=== PATIENT | female | born 1940 | race Caucasian/White ===

== ENCOUNTER → 2016-07-04 | Outpatient (CLI) | payer MEDICARE, OTHER ==
[~2016-07-04] MED LIST: ASPIRIN 81M81 MG/TA2 PO; CALCIUM + D 6001 TA1 PO; CINNAMON500 MG PO; DIABETA 5MG5 MG/TAB PO; GARLIC OIL NA1000 MG PO; GLUCOPHAGE500 MG/TAB PO; LIPITOR 80MG80 MG PO; LOPRESSOR 550 MG/TAB PO; OMEGA-3 FISH1200 MG PO; PRINIVIL40 MG PO; ZOCOR 80MG80 MG PO; insulin SQ
== END ==
LOC: MC.RAD 08:11
DX: N63 Unspecified lump in breast (principal); D24.2 Benign neoplasm of left breast; D24.1 Benign neoplasm of right breast

== ENCOUNTER → 2018-08-24 | Outpatient (CLI) | payer MEDICARE, OTHER | LOC: MC.RAD 10:00 | DX: Z12.31 Encounter for screening mammogram for malignant neoplasm of breast (principal) ==

== ENCOUNTER → 2019-04-13 | Outpatient (CLI) | payer MEDICARE, OTHER | LOC: MC.RAD 12:21 | DX: N63.10 Unspecified lump in the right breast, unspecified quadrant (principal) | CPT/HCPCS: G0279 ==

== ENCOUNTER → 2020-08-17 | Outpatient (CLI) | payer MEDICARE, OTHER ==
[~2020-08-17] MED LIST changes: +FOSAMAX 35MG35 MG PO; +JANUVIA 100MG100 MG PO; +LANTUS100 U/ML SQ; +MASON NATURAL2000 IU PO; +MULTIVITAMIN FO1 CAP PO; +OMEGA-31 SGL PO; +PEPCID 20MG TAB20 MG PO; +ZOLOFT 100MG100 MG PO
== END ==
LOC: ZCOL.LAB 18:08
DX: T21.01XD Burn of unspecified degree of chest wall, subsequent encounter (principal)

== ENCOUNTER 2021-02-06 09:35 | Day surgery (SDC) | payer MEDICARE, OTHER ==
[~2021-02-06] VITALS: Ht 162.6 cm; Wt 90.4 kg
[~2021-02-06 09:35] MED LIST changes: -FOSAMAX 35MG35 MG PO; -JANUVIA 100MG100 MG PO; -LANTUS100 U/ML SQ; -MASON NATURAL2000 IU PO; -MULTIVITAMIN FO1 CAP PO; -OMEGA-31 SGL PO; -PEPCID 20MG TAB20 MG PO; -ZOLOFT 100MG100 MG PO
[2021-02-06] MEDS ORDERED: JANUVIA 100MG100 MG PO ×2 (10:43→10:51)
[2021-02-06] MEDS ORDERED: FOSAMAX 35MG35 MG PO (10:46)
[2021-02-06] MEDS ORDERED: LIPITOR 80MG80 MG PO (10:47)
[2021-02-06] MEDS ORDERED: MASON NATURAL2000 IU PO (10:47)
[2021-02-06] MEDS ORDERED: LANTUS100 U/ML SQ (10:49)
[2021-02-06] MEDS ORDERED: PRINIVIL40 MG PO (10:49)
[2021-02-06] MEDS ORDERED: GLUCOPHAGE500 MG/TAB PO (10:50)
--- NOTE | 2021-02-06 10:50 | NUR ---
PATIENT AMBULATED INTO ENDO UNIT WITH STEADY GAIT. PATIENT IS ALERT AND ORIENTED X3. PATIENT SON IS TO BE CALLED WHEN READY TO GO HOME. CONSENT EXPLAINED AND PATIENT SIGNED. ASSESSMENT COMPLETED. LUNGS CTA. HEART S1S2, REGULAR WITH MURMUR. BOWEL SOUNDS HEARD. PEDAL PULSES +2.
[2021-02-06] MEDS ORDERED: ZOLOFT 100MG100 MG PO (10:51)
[2021-02-06] MEDS ORDERED: MULTIVITAMIN FO1 CAP PO (10:52)
[2021-02-06] MEDS ORDERED: OMEGA-31 SGL PO (10:53)
[2021-02-06 10:59] VITALS: BP 140/75; PULSE 95; TEMP 98.4
[2021-02-06] MEDS ORDERED: PEPCID 20MG TAB20 MG PO (12:01)
[2021-02-06 12:05] VITALS: BP 127/66; PULSE 84; TEMP 97.8
--- NOTE | 2021-02-06 12:05 | NUR ---
PATIENT BROUGHT BACK TO [facility], AMBULATED WITHOUT DIFFICULTY. PATIENT IS AWAKE ALERT. NO COMPLAINTS OF [place] OR PAIN. VITAL SIGNS STABLE. REPORT RECIEVED FROM VANESSA JUNG, ALL QUESTIONS ANSWERED. REQUESTS MUFFIN AND JUICE. WARM BLANKET PROVIDED, WILL CONTINUE TO MONITOR.
[2021-02-06 12:20] VITALS: BP 123/62; PULSE 77
--- NOTE | 2021-02-06 12:20 | NUR ---
TOLERATING FOOD AND DRINK WITHOUT DIFFICULTY. PATIENT AWAITING TO SPEAK WITH DR. SAMSON. WILL CONTINUE TO MONITOR.
[2021-02-06 12:35] VITALS: BP 146/70; PULSE 82
--- NOTE | 2021-02-06 12:52 | NUR ---
VSS ON ROOM AIR. DR SAMSON SPEAKS WITH PATIENT. PATIENT DENIES DISCOMFORT AND NAUSEA. IV DC'D WITH CATHETER TIP INTACT. PRESSURE AND BANDAGE APPLIED. 2600 DISCHARGE INSTRUCTIONS GIVEN VERBAL AND DISCHARGE PACKET PROVIDED. QUESTIONS ANSWERED AND PATIENT VOICED UNDERSTANDING. PATIENT SON CALLED. PATIENT CHANGES INTO STREET CLOTHES. [id number] PATIENT'S SON LATE ON PICKING UP PATIENT PER PRIVATE VECHILE.
== END 2021-02-06 13:39 | disposition home or self-care (01) ==
LOC: SDCO 09:35
DX: D12.2 Benign neoplasm of ascending colon (principal); K63.5 Polyp of colon; D17.5 Benign lipomatous neoplasm of intra-abdominal organs; K25.7 Chronic gastric ulcer without hemorrhage or perforation; K29.30 Chronic superficial gastritis without bleeding; K29.80 Duodenitis without bleeding; K31.819 Angiodysplasia of stomach and duodenum without bleeding; K64.0 First degree hemorrhoids; K57.30 Diverticulosis of large intestine without perforation or abscess without bleeding; D50.0 Iron deficiency anemia secondary to blood loss (chronic); I10 Essential (primary) hypertension; M19.90 Unspecified osteoarthritis, unspecified site; E78.5 Hyperlipidemia, unspecified; E11.40 Type 2 diabetes mellitus with diabetic neuropathy, unspecified; F32.9 Major depressive disorder, single episode, unspecified; F41.9 Anxiety disorder, unspecified; Z79.82 Long term (current) use of aspirin; Z20.822 Contact with and (suspected) exposure to COVID-19; Z79.899 Other long term (current) drug therapy; Z87.891 Personal history of nicotine dependence; Z79.84 Long term (current) use of oral hypoglycemic drugs
CPT/HCPCS: J7030

== ENCOUNTER 2021-05-17 11:43 | Emergency (ER) | payer MEDICARE, OTHER ==
[~2021-05-17] VITALS: Ht 154.9 cm; Wt 75.0 kg
[~2021-05-17 11:43] MED LIST changes: +FOSAMAX 35MG35 MG PO; +JANUVIA 100MG100 MG PO; +LANTUS100 U/ML SQ; +MASON NATURAL2000 IU PO; +MULTIVITAMIN FO1 CAP PO; +OMEGA-31 SGL PO; +PEPCID 20MG TAB20 MG PO; +ZOLOFT 100MG100 MG PO
[2021-05-17 12:41] LABS: BASO # 0.1 K/mm3 (0.0-0.2); BASO % 0.6 % (0.0-2.0); EOS # 0.1 K/mm3 (0.0-0.7); EOS % 0.5 % (0.0-4.0); GRAN # 9.9 K/mm3 (1.4-6.5); GRAN % 79.6 % (42.2-75.2); LYMPH # 1.1 K/mm3 (1.2-3.4); LYMPH % 8.8 % (20.0-51.0); MEAN CELL VOLUME 81 fl (80.0-100.0); MEAN CORPUSCULAR HGB CONC 32 g/dl (33.0-37.0); MEAN PLATELET VOLUME 8.9 fl (7.4-10.4); MONO # 1.2 K/mm3 (0.1-0.6); MONO % 9.9 % (1.7-9.3); PLATELET COUNT 411 K/mm3 (130-400); RED BLOOD COUNT 3.82 M/mm3 (4.10-5.30); REDCELL DISTRIBUTION WIDTH-CV 15.8 % (11.5-14.5)
[2021-05-17 12:42] LABS: HEMATOCRIT 30.8 % (37.0-47.0); HEMOGLOBIN 9.7 g/dl (12.5-16.0); MEAN CORPUSCULAR HEMOGLOBIN 25 pg (27-31)
[2021-05-17 12:44] LABS: INR 1.1 (0.8-3.0); PROTHROMBIN TIME 12.2 SECONDS (9.7-12.8)
[2021-05-17 12:47] LABS: PARTIAL THROMBOPLASTIN TIME 33.4 SECONDS (26.0-37.0)
[2021-05-17 12:55] LABS: ALANINE AMINOTRANSFERASE 9 U/L (0-55); ALBUMIN 3.6 gm/dL (3.4-4.8); ALKALINE PHOSPHATASE 103 U/L (40-150); ANION GAP 13 mmol/L (7-16); AST,SGOT 17 U/L (5-34); BILIRUBIN,TOTAL 0.6 mg/dL (0.2-1.2); BLOOD UREA NITROGEN 8 mg/dL (10-20); CALCIUM 9.2 mg/dL (8.4-10.2); CARBON DIOXIDE 21 mmol/L (23-31); CHLORIDE 97 mmol/L (98-107); CREATININE, serum 0.79 mg/dL (0.57-1.11); GLUCOSE 154 mg/dL (70-99); POTASSIUM 4.6 mmol/L (3.5-4.5); SODIUM 131 mmol/L (136-145); TOTAL PROTEIN 7.9 gm/dL (6.2-8.1)
[2021-05-17 13:02] LABS: TROPONIN-I < 0.010 ng/mL (0.00-0.033)
[2021-05-17 15:08] VITALS: BP 138/73; PULSE 102; TEMP 98.5
== END 2021-05-17 15:08 | disposition home or self-care (01) ==
LOC: COL.ER 11:43
PROVIDERS: Emergency Medicine
DX: R06.00 Dyspnea, unspecified (principal); D64.9 Anemia, unspecified; E87.1 Hypo-osmolality and hyponatremia; D72.829 Elevated white blood cell count, unspecified; R79.1 Abnormal coagulation profile; E11.9 Type 2 diabetes mellitus without complications; I10 Essential (primary) hypertension; E78.5 Hyperlipidemia, unspecified; F17.210 Nicotine dependence, cigarettes, uncomplicated; Z20.822 Contact with and (suspected) exposure to COVID-19; Z79.4 Long term (current) use of insulin; Z79.84 Long term (current) use of oral hypoglycemic drugs; Z79.899 Other long term (current) drug therapy
CPT/HCPCS: J7040; Q9967

== ENCOUNTER 2021-10-09 13:02 | Emergency (ER) | payer MEDICARE, OTHER ==
[~2021-10-09] VITALS: Ht 154.9 cm; Wt 79.5 kg
[2021-10-09 13:13] VITALS: TEMP 98.1
[2021-10-09 14:07] LABS: BASO # 0.1 K/mm3 (0.0-0.2); BASO % 0.6 % (0.0-2.0); EOS % 0.3 % (0.0-4.0); GRAN # 8.7 K/mm3 (1.4-6.5); GRAN % 82.1 % (42.2-75.2); HEMOGLOBIN 10.1 g/dl (12.5-16.0); LYMPH # 0.9 K/mm3 (1.2-3.4); LYMPH % 8.2 % (20.0-51.0); MEAN CELL VOLUME 82 fl (80.0-100.0); MEAN CORPUSCULAR HEMOGLOBIN 25 pg (27-31); MEAN CORPUSCULAR HGB CONC 30 g/dl (33.0-37.0); MEAN PLATELET VOLUME 8.7 fl (7.4-10.4); MONO # 0.9 K/mm3 (0.1-0.6); MONO % 8.3 % (1.7-9.3); PLATELET COUNT 389 K/mm3 (130-400); RED BLOOD COUNT 4.06 M/mm3 (4.10-5.30); REDCELL DISTRIBUTION WIDTH-CV 17.3 % (11.5-14.5)
[2021-10-09 14:26] LABS: ALBUMIN 3.8 gm/dL (3.4-4.8); BILIRUBIN,TOTAL 0.6 mg/dL (0.2-1.2); CALCIUM 9.8 mg/dL (8.4-10.2); CREATININE, serum 0.75 mg/dL (0.57-1.11); POTASSIUM 4.2 mmol/L (3.5-4.5); TOTAL PROTEIN 7.6 gm/dL (6.2-8.1)
[2021-10-09 14:30] LABS: HEMATOCRIT 33.2 % (37.0-47.0)
[2021-10-09 14:32] LABS: TROPONIN-I 0.013 ng/mL (0.00-0.033)
[2021-10-09 15:35] LABS: PH 7 (5-8); SQUAMOUS EPITHELIAL None Seen /hpf (0-10); URINE APPEARANCE Clear (CLEAR/HAZY); URINE BACTERIA None Seen /hpf (NONE SEEN); URINE BILIRUBIN Negative (NEGATIVE); URINE BLOOD Negative (NEGATIVE); URINE COLOR Straw (YELLOW); URINE GLUCOSE Negative (NEGATIVE); URINE KETONE Negative (NEGATIVE); URINE LEUKOCYTE ESTERASE Negative (NEGATIVE); URINE NITRATE Negative (NEGATIVE); URINE PROTEIN(semi-quant) Negative (NEGATIVE); URINE RBC None Seen /hpf (0-2); URINE UROBILINOGEN Negative (NEGATIVE)
[2021-10-09 15:37] LABS: COLLECTION METHOD CATHETER
[2021-10-09 16:12] VITALS: BP 131/64; PULSE 88
== END 2021-10-09 16:12 | disposition home or self-care (01) ==
LOC: COL.ER 13:02
PROVIDERS: Nurse Practitioner Primary Care
DX: B02.9 Zoster without complications (principal); Z20.822 Contact with and (suspected) exposure to COVID-19

== ENCOUNTER 2022-08-06 20:04 | Inpatient (IN) | payer MEDICARE, OTHER ==
[~2022-08-06] VITALS: Ht 162.6 cm; Wt 77.0 kg
[~2022-08-06 20:04] MED LIST changes: +CORDARONE200 MG/TAB PO; +COREG 3.123.125 MG/T PO; +ELIQUIS 5MG PO; +JARDIANCE10 PO; +LASIX 40MG TABL40 MG PO; +TOPROL XL 25MG25 MG PO
[2022-08-06 20:52] LABS: BASO % 0.3 % (0.0-2.0); EOS # 0.1 K/mm3 (0.0-0.7); EOS % 0.7 % (0.0-4.0); GRAN # 11.7 K/mm3 (1.4-6.5); GRAN % 79.5 % (42.2-75.2); HEMATOCRIT 39.3 % (37.0-47.0); HEMOGLOBIN 13.1 g/dl (12.5-16.0); LYMPH # 1.7 K/mm3 (1.2-3.4); LYMPH % 11.5 % (20.0-51.0); MEAN CELL VOLUME 88 fl (80.0-100.0); MEAN CORPUSCULAR HEMOGLOBIN 29 pg (27-31); MEAN CORPUSCULAR HGB CONC 33 g/dl (33.0-37.0); MEAN PLATELET VOLUME 10.2 fl (7.4-10.4); MONO % 6.9 % (1.7-9.3); PLATELET COUNT 236 K/mm3 (130-400); RED BLOOD COUNT 4.47 M/mm3 (4.10-5.30); REDCELL DISTRIBUTION WIDTH-CV 13.4 % (11.5-14.5)
[2022-08-06 21:06] LABS: COLLECTION METHOD CLEAN CATCH
[2022-08-06 21:14] LABS: INR 2.3 (0.8-3.0); PROTHROMBIN TIME 27.1 SECONDS (9.7-12.8)
[2022-08-06 21:17] LABS: PARTIAL THROMBOPLASTIN TIME 42.3 SECONDS (26.0-37.0)
[2022-08-06 21:20] LABS: AMORPHOUS CRYSTAL Present (NOT PRESENT); MUCOUS Present (NOT PRESENT); SQUAMOUS EPITHELIAL None Seen /hpf (0-10); URINE BACTERIA Rare /hpf (NONE SEEN); URINE RBC 0-2 /hpf (0-2)
[2022-08-06 21:21] LABS: URINE APPEARANCE Hazy (CLEAR/HAZY); URINE BLOOD Negative (NEGATIVE); URINE COLOR Yellow (YELLOW); URINE GLUCOSE Negative (NEGATIVE); URINE KETONE Negative (NEGATIVE); URINE NITRATE Negative (NEGATIVE); URINE PROTEIN(semi-quant) Negative (NEGATIVE); URINE UROBILINOGEN 0.2 (NEGATIVE)
[2022-08-06 21:31] LABS: ALBUMIN 3.1 gm/dL (3.4-4.8); BILIRUBIN,TOTAL 0.5 mg/dL (0.2-1.2); CALCIUM 8.5 mg/dL (8.4-10.2); CREATININE, serum 4.12 mg/dL (0.57-1.11); POTASSIUM 4.1 mmol/L (3.5-4.5); TOTAL PROTEIN 5.8 gm/dL (6.2-8.1)
[2022-08-06 21:36] LABS: TROPONIN-I 0.027 ng/mL (0.00-0.033)
[2022-08-07 06:22] LABS: BASO % 0.3 % (0.0-2.0); EOS # 0.1 K/mm3 (0.0-0.7); EOS % 0.7 % (0.0-4.0); GRAN # 10.6 K/mm3 (1.4-6.5); GRAN % 79.7 % (42.2-75.2); LYMPH # 1.6 K/mm3 (1.2-3.4); LYMPH % 11.8 % (20.0-51.0); MEAN CELL VOLUME 89 fl (80.0-100.0); MEAN CORPUSCULAR HEMOGLOBIN 29 pg (27-31); MEAN CORPUSCULAR HGB CONC 33 g/dl (33.0-37.0); MEAN PLATELET VOLUME 9.5 fl (7.4-10.4); MONO # 0.9 K/mm3 (0.1-0.6); MONO % 6.7 % (1.7-9.3); PLATELET COUNT 194 K/mm3 (130-400); RED BLOOD COUNT 4.08 M/mm3 (4.10-5.30); REDCELL DISTRIBUTION WIDTH-CV 13.5 % (11.5-14.5)
[2022-08-07 06:26] LABS: HEMATOCRIT 36.2 % (37.0-47.0)
[2022-08-07 06:40] LABS: ALBUMIN 3.3 gm/dL (3.4-4.8); CALCIUM 8.7 mg/dL (8.4-10.2); CREATININE, serum 3.97 mg/dL (0.57-1.11); MAGNESIUM 2.2 mg/dL (1.6-2.6); PHOSPHOROUS 4.9 mg/dL (2.3-4.7); POTASSIUM 3.8 mmol/L (3.5-4.5)
[2022-08-07 12:44] VITALS: BP 114/51; PULSE 67; TEMP 97.6
--- NOTE | 2022-08-07 12:54 | NUR ---
PT ADMITTED FROM ED FOR SEPSIS, WEAKNESS, AND FALL. PT IS AXOX4 BUT SLEEPY. PT'S VSS. PT HAS LR RUNNING. PT ORIENTED TO ROOM AND FLOOR. CALL LIGHT GIVEN AND PT INSTRUCTED TO CALL WITH ALL NEEDS. BED ALARM ACTIVE.
[2022-08-07 16:00] VITALS: BP 127/48; PULSE 69; TEMP 97.7; TEMP 98
[2022-08-07 16:34] LABS: CALCIUM 8.7 mg/dL (8.4-10.2); CREATININE, serum 3.34 mg/dL (0.57-1.11); POTASSIUM 3.8 mmol/L (3.5-4.5)
[2022-08-07 19:17] VITALS: BP 111/33; PULSE 75; TEMP 98.6
[2022-08-07 23:53] VITALS: BP 116/52; PULSE 78; TEMP 98.6
[2022-08-08 03:49] VITALS: BP 135/54; PULSE 78; TEMP 98.6
--- NOTE | 2022-08-08 05:44 | NUR ---
pt weaned to RA, IVF infusing per piv @100cc/hr, bgm last noc was 99, no SSI required. no diarrhea this shift.
[2022-08-08 07:34] VITALS: BP 117/41; PULSE 70; TEMP 98.2
[2022-08-08 07:38] LABS: BASO # 0.1 K/mm3 (0.0-0.2); BASO % 0.4 % (0.0-2.0); EOS # 0.1 K/mm3 (0.0-0.7); EOS % 1.1 % (0.0-4.0); GRAN # 9.3 K/mm3 (1.4-6.5); GRAN % 77.9 % (42.2-75.2); HEMATOCRIT 35.5 % (37.0-47.0); HEMOGLOBIN 11.6 g/dl (12.5-16.0); LYMPH # 1.5 K/mm3 (1.2-3.4); LYMPH % 12.9 % (20.0-51.0); MEAN CELL VOLUME 90 fl (80.0-100.0); MEAN CORPUSCULAR HEMOGLOBIN 30 pg (27-31); MEAN CORPUSCULAR HGB CONC 33 g/dl (33.0-37.0); MEAN PLATELET VOLUME 9.6 fl (7.4-10.4); MONO # 0.9 K/mm3 (0.1-0.6); MONO % 7.2 % (1.7-9.3); PLATELET COUNT 173 K/mm3 (130-400); RED BLOOD COUNT 3.93 M/mm3 (4.10-5.30); REDCELL DISTRIBUTION WIDTH-CV 13.4 % (11.5-14.5)
[2022-08-08 07:41] LABS: CALCIUM 9.1 mg/dL (8.4-10.2); CREATININE, serum 2.07 mg/dL (0.57-1.11); POTASSIUM 3.9 mmol/L (3.5-4.5)
--- NOTE | 2022-08-08 10:44 | NUR ---
SW met w patient to complete intake. Patient reports that she lives at home with her son Marlo ([phone]). Patient reports that she is independent with her ADL's and utilizes a walker to assist with mobility. Patient endorses to eating and drinking normal at home and that her son makes meals for her. PCP is and she utilizes Mail in prescriptions for her medications. Patient verbalizes that she does have a [id number] established listing her son. Patient verbalizes that at this time she does not have home health services, but would like to be discharged home with home health at this discharge. SW confirmed that patients code status of DNR with hospitalist. Discharge plan: Home ( patient would like home health services established.)
--- NOTE | 2022-08-08 10:50 | NUR ---
SHIFT ASSESSMENT COMPLETED AND MORNING MEDICATIONS ADMINISTERED PER ORDER. PATIENT IS ALERT AND ORIENTED X4. DENIES PAIN. LUNGS CTA. ON IV FLUIDS, TOLERATING WELL. DENIES NEEDS. CALL LIGHT WITHIN REACH.
[2022-08-08 11:21] VITALS: BP 105/37; PULSE 76; TEMP 98.8
--- NOTE | 2022-08-08 13:42 | NUR ---
Press Set Up was contacted by nursing staff in reference to Patient's family's concerns for discharging home with home health rather than SNF. SW briefed family of the reccomendations from treatment team and the assessment of Patient's needs being met with Home Health Services rather than SNF. SW briefed family that medically necessity must be met to be admitted to SNF. Family requested nursing staff re-brief Patient on the aspects of DNR status and the care to be provided, and not provided due to the decision to transition to DNR. SW will consult nursing staff to request Patient be briefed from a medical perspective.
[2022-08-08 15:21] VITALS: BP 117/60; PULSE 67; TEMP 98
[2022-08-08 16:49] LABS: CALCIUM 9.3 mg/dL (8.4-10.2); CREATININE, serum 1.54 mg/dL (0.57-1.11); POTASSIUM 4.1 mmol/L (3.5-4.5)
[2022-08-08] MEDS ORDERED: CORDARONE200 MG/TAB PO (17:11)
--- NOTE | 2022-08-08 18:47 | NUR ---
PATIENT DISCHARGED PER ORDER. IV TO LEFT WRIST AND RIGHT FOREARM REMOVED WITH CATHETERS INTACT, SCANT BLEEDING NOTED TO IV SITES, PRESSURE APPLIED UNTIL HEMOSTASIS ACHIEVED, GAUZE DRESSING APPLIED. DISCHARGE TEACHING PROVIDED TO PATIENT AND SON WHO BOTH DENY QUESTIONS OR CONCERNS. DENIES FURTHER NEEDS.
== END 2022-08-08 19:00 | disposition home health service (06) | DRG 872 ==
LOC: COL.ER 20:04 → MEDICAL 08-07 05:14
PROVIDERS: Family Medicine; Internal Medicine; Student in an Organized Health Care Education/Training Program; ADMIT Internal Medicine
DX: A41.9 Sepsis, unspecified organism (principal); N17.9 Acute kidney failure, unspecified; E87.1 Hypo-osmolality and hyponatremia; I50.22 Chronic systolic (congestive) heart failure; Z66 Do not resuscitate; R19.7 Diarrhea, unspecified; R11.2 Nausea with vomiting, unspecified; I95.9 Hypotension, unspecified; I48.91 Unspecified atrial fibrillation; E11.9 Type 2 diabetes mellitus without complications; E78.5 Hyperlipidemia, unspecified; K21.9 Gastro-esophageal reflux disease without esophagitis; F32.A Depression, unspecified; M81.0 Age-related osteoporosis without current pathological fracture; D50.9 Iron deficiency anemia, unspecified; I11.0 Hypertensive heart disease with heart failure; Z79.4 Long term (current) use of insulin; Z79.84 Long term (current) use of oral hypoglycemic drugs; Z79.01 Long term (current) use of anticoagulants; Z79.82 Long term (current) use of aspirin; Z79.899 Other long term (current) drug therapy; Z20.822 Contact with and (suspected) exposure to COVID-19
CPT/HCPCS: J0696; J7040; J7120